=== PATIENT | male | born 1980 | race Caucasian/White ===

== ENCOUNTER 2024-07-20 19:27 | Emergency (ER) | payer BC ==
[~2024-07-20] VITALS: Ht 180.3 cm; Wt 68.0 kg
[2024-07-20] MEDS ORDERED: ONDANSETRON 4 MG TAB.RAPDIS ONE (20:05)
[2024-07-20] MEDS: ONDANSETRON 4 MG TAB.RAPDIS SL ONE (20:32)
[2024-07-20] MEDS ORDERED: ONDA4TAB11 PO (21:07)
[2024-07-20 21:52] VITALS: BP 129/77; TEMP 98.5; O2SAT 97
== END 2024-07-20 21:53 | disposition home or self-care (01) ==
LOC: ER 19:50
DX: K52.9 Noninfective gastroenteritis and colitis, unspecified (principal); Z60.2 Problems related to living alone
CPT/HCPCS: 99283; Q0162